=== PATIENT | male | born 1995 | race Caucasian/White ===

== ENCOUNTER 2021-06-24 00:08 | Emergency (ER) | payer OTHER, SELFPAY ==
[2021-06-24] VITALS (7 sets, daily range): BP systolic 122–126; BP diastolic 56–94; PULSE 100–122; RESP 18–22; TEMP 38.4–39.2; O2SAT 95–100
--- NOTE | ~2021-06-24 | XR_ITS ---
XR chest 1V portable DATE: 06/24/2021 06:07 INDICATION: Covid exposure 2 days ago. Cough, fever TECHNIQUE: Portable upright AP chest on 06/20/2021 at 0600 hours COMPARISON: None FINDINGS: Normal heart size. No hilar or mediastinal enlargement. No pulmonary infiltrate or consolid ation, pleural effusion or pulmonary vascular congestion or pneumothorax. IMPRESSION: No active cardiopulmonary disease Reviewed, dictated and finalized at location A.
--- NOTE | 2021-06-24 05:55 | ED.FEVER ---
HPI - Fever General Chief Complaint: Fever Stated Complaint: Fever, covid exposure. Time Seen by Provider: 06/24/21 05:36 Source: patient and RN notes reviewed Mode of arrival: ambulatory Limitations: no limitations History of Present Illness HPI Narrative: This is a 25 year old male who presents for evaluation of fever and URI symptoms. Patient states he develop fever, cough, sob, body aches yesterday. He lives with his sister who was found to be positive for covid 4 days ago. He has nonproductive cough. He reports shortness of breath but he denies chest pain. He also denies abdominal pain, nausea, vomiting or diarrhea. He is complaining of low back pain but denies urinary symptoms. He also reports sore throat, runny nose and headache. He has not taken anything for his symptoms. Related Data Allergies Allergy/AdvReac Type Severity Reaction Status Date / Time amoxicillin Allergy Intermediate Hives Verified 06/24/21 06:46 Review of Systems Review of Systems: All systems reviewed & are unremarkable except as noted in HPI and below Constitutional: Constitutional: Reports chills and Reports fever(s) ENT: Reports nasal congestion and Reports sore throat Cardiovascular: Cardiovascular: Denies chest pain Respiratory: Respiratory: Reports cough and Reports dyspnea Gastrointestinal: Gastrointestinal: Denies abdominal pain, Denies diarrhea, Denies nausea and Denies vomiting Musculoskeletal: Musculoskeletal: Reports myalgias Neurologic: Reports headache(s) [facility] Past Medical History Medical History (Updated 06/24/21 @ 07:41 by Tiffany Jimenez MD) Patient denies medical problems Surgical History Surgical History (Updated 06/24/21 @ 05:55 by Tiffany Jimenez MD) History of hernia surgery Social History Social History (Updated 06/24/21 @ 05:55 by Tiffany Jimenez MD) Smoking packs per day: 0.5 Smoking cigarettes per day: 10.0 Smoking status: Current every day smoker Exam Const: General: no acute distress and alert Orientation/consciousness: patient oriented x3 HENMT: Face and sinus: face symmetric Mouth: Yes lip normal and Yes moist mucous membranes Throat: uvula midline and posterior oropharynx abnormal edema and exudates Eyes: Pupils: Equal, round and reactive pupils present EOM: EOMs intact bilaterally Resp: Effort & Inspection: normal respiratory effort, no retractions and no use of accessory muscles Auscultation: clear to auscultation bilaterally Cardio: Rate: tachycardic Rhythm: regular rhythm Heart sounds: no murmurs GI: GI Palp: Yes Soft to palpation, No Tenderness to palpation present (GI) and No Guarding due to palpation present (GI) Auscultation: normal bowel sounds : General: Yes no CVA tenderness Skin: General skin exam: normal color Rashes: no rashes Neuro: General: patient oriented x3 and moves all extremities Psych: Mental Status: mental status grossly normal Affect: normal affect Course Reevaluation(s) Reevaluation #1: Patient states he feels much better. I discussed discharge plan. He likely has COVID. I did not see pneumonia at this time. Strep and mono are negative. Date: 06/24/21 Time: 07:38 Vital Signs Vital signs: Vital Signs Temperature 102.5 F H 06/24/21 00:14 Pulse Rate 122 H 06/24/21 00:14 Respiratory Rate 22 H 06/24/21 00:14 Blood Pressure 124/94 H 06/24/21 00:14 Pulse Oximetry 99 06/24/21 00:14 Temperature 101.2 F H 06/24/21 05:58 Pulse Rate 102 H 06/24/21 07:12 Respiratory Rate 20 06/24/21 07:12 Blood Pressure 126/69 06/24/21 07:12 Pulse Oximetry 95 06/24/21 07:12 MDM - Fever Lab Data Attestation: I reviewed the patient's lab results. Result diagrams: 06/24/21 05:52 06/24/21 05:52 Labs: Lab Results 06/24/21 06/24/21 06/24/21 Range/Units 05:52 05:52 05:52 WBC 7.7 (4.5-10.0) K/mm3 RBC 5.35 (4.6-6.20) M/mm3 Hgb 15.2 (14.0-18.0) g/dL Hct 4
--- NOTE | 2021-06-24 05:59 | PC.NURSE ---
pt exposed to covid 2 days ago. now both pt and his girlfriend request covid testing. pt has fever and has not taken any home meds because I didnt have any.
[2021-06-24 06:04] LABS: Basophils Percent Auto 0.3 % (0.2-1.2); Eosinophils Percent Auto 0.5 % (0-4.4); Hematocrit 44.1 % (42.0-52.0); Hemoglobin 15.2 g/dL (14.0-18.0); Immature Granulocyte Absolute 0.03 K/mm3 (0.00-0.031); Immature Granulocyte Percent A 0.4 % (0-0.5); Lymphocytes Absolute Auto 0.69 K/mm3 (0.9-3.2); Mean Corpuscular HGB Conc 34.5 g/dl (32-36); Mean Corpuscular Hemoglobin 28.4 pg (26-34); Mean Corpuscular Volume 82.4 fl (80-100); Mean Platelet Volume 10.7 fl (7.4-10.4); Monocytes Absolute Auto 1.2 K/mm3 (0.1-0.6); Monocytes Percent Auto 15.4 % (2.6-8.5); Neutrophils Absolute Auto 5.7 K/mm3 (1.3-6.7); Neutrophils Percent Auto 74.4 % (45.5-73.1); Platelet Count Result 172 k/mm3 (150-375); Red Blood Count 5.35 M/mm3 (4.6-6.20); Red Cell Distribution Width 12.6 % (11.5-14.5); White Blood Count 7.7 K/mm3 (4.5-10.0)
[2021-06-24 06:18] LABS: INR 1.1; Prothrombin Time 14.4 Seconds (11.1-14.7)
[2021-06-24 06:22] LABS: Lactic Acid Reflex 1.2 mmol/L (0.7-2.1)
[2021-06-24 06:24] LABS: Alanine Aminotransferase 32 U/L (4-50); Albumin Level 4.7 g/dL (3.5-5.1); Alkaline Phosphatase 53 U/L (38-126); Anion Gap 14 mmol/L (8-16); Aspartate Amino Transferase 35 U/L (17-59); Bilirubin,Total 0.5 mg/dL (0.2-1.3); Blood Urea Nitrogen 11 mg/dL (9-20); Calcium 9.6 mg/dL (8.4-10.2); Carbon Dioxide 23 mmol/L (22-30); Chloride 102 mmol/L (98-107); Estimated CRCL calculation 130 ml/min; Estimated Glomerular Filt Rate > 60; Glucose 101 mg/dL (65-110); Potassium 3.2 mmol/L (3.4-5.0); Sodium 139 mmol/L (137-145)
[2021-06-24 06:32] LABS: D Dimer 0.27 ug/mL (<0.48)
[2021-06-24] MEDS: SODIUM CHLORIDE 0.9% IV 1,000 ML 999 ML IV CONT (06:49)
[2021-06-24 07:02] LABS: Monoscreen Negative (Negative); Negative Monotest Control Negative (Negative); Positive Monotest Control Positive (Positive)
[2021-06-24 07:12] LABS: Add Urine Microscopic? NO; Appearance Urine Clear (Clear); Bilirubin Urine Negative (Negative); Blood Urine Negative (Negative); Color Urine Yellow (Yellow); Glucose Urine UA Negative (Negative); Ketones Urine Negative (Negative); Leukocyte Esterase Ur Negative LEU/UL (Negative); Nitrate Urine Negative (Negative); Protein Urine Negative (Negative); Specific Grav Ur 1.009 (1.001-1.035); Urobilinogen Urine Negative mg/dL (<2.0)
[2021-06-24 16:43] LABS: SARS-CoV-2 RNA PCR Positive
== END 2021-06-24 07:54 | disposition home or self-care (01) ==
PROVIDERS: Emergency Provider General Practice
DX: U07.1 COVID-19 (principal); J06.9 Acute upper respiratory infection, unspecified; F17.210 Nicotine dependence, cigarettes, uncomplicated
CPT/HCPCS: 36415; 71045; 80053; 81003; 83605; 85025; 85380; 85610; 85730; 86140; 86308; 87081; 87804; 87880; 96365; 99284; C9803; J0131; J7030; U0003; U0005